=== PATIENT | female | born 2000 | race Caucasian/White ===

== ENCOUNTER 2021-04-21 15:30 | Emergency (ER) | payer OTHER ==
[2021-04-21] MEDS ORDERED: predniSONE 20 MG Tab PO ONE (15:56)
--- NOTE | 2021-04-21 16:04 | EDM.PDOC ---
ED HPI GENERAL MEDICAL PROBLEM - General Chief Complaint: Upper Extremity Injury/Pain Stated Complaint: LEFT WRIST PAIN Time Seen by Provider: 04/21/21 15:46 Source of Information: Reports: Patient, RN Notes Reviewed History Limitations: Reports: No Limitations - History of Present Illness INITIAL COMMENTS - FREE TEXT/NARRATIVE: Patient is a 20-year-old female who presents to the ER for the evaluation of her left wrist pain. States that this has been present for the past few days, she is having some swelling associated with this and notes that it is painful to move her wrist in any direction much at all. She states that she is not had any fevers or chills, cough or shortness of breath, or any other worsening sick symptoms. She is denying any numbness or tingling into her fingers. She is denying any pain that shoots up her arm. She did use 2 tablets of hydrocodone for pain management states that this seems to have gotten somewhat better with that. She is allergic to ibuprofen so has not taken anything like that. Patient notes that she does game on her [employer], so is doing a lot of frequent repetitive movements with her wrist for that. Left Wrist Pain Score (Numeric/FACES): 7 - Related Data Allergies Allergy/AdvReac Type Severity Reaction Status Date / Time ibuprofen [From Motrin] Allergy Severe Swelling Verified 04/21/21 15:45 Penicillins AdvReac Severe Stomach Verified 04/21/21 15:45 Upset Home Meds: Home Meds predniSONE 20 mg PO ASDIRECTED #15 tab 04/21/21 [Rx] Past Medical History - Past Health History Medical/Surgical History: Denies Medical/Surgical History Social & Family History - Tobacco Use Tobacco Use Status *Q: Current Some Day Tobacco User Years of Tobacco use: 1 Packs/Tins Daily: 0.1 - Caffeine Use Caffeine Use: Reports: Soda, Tea - Recreational Drug Use Recreational Drug Use: No Review of Systems - Review of Systems Review Of Systems: Comprehensive ROS is negative, except as noted in HPI. ED EXAM, GENERAL - Physical Exam Exam: See Below Exam Limited By: No Limitations General Appearance: Alert, WD/WN, No Apparent Distress Respiratory/Chest: No Respiratory Distress, Lungs Clear, Normal Breath Sounds, No Accessory Muscle Use, Chest Non-Tender Cardiovascular: Normal Peripheral Pulses, Regular Rate, Rhythm, No Edema Peripheral Pulses: 2+: Dorsalis Pedis (L), Dorsalis Pedis (R) Extremities: Normal Capillary Refill, Joint Swelling (slight swelling at left wrist), Limited Range of Motion (of left wrist d/t pain). No: Increased Warmth, Redness Neurological: Alert, Oriented, Normal Cognition, No Motor/Sensory Deficits Psychiatric: Normal Affect, Normal Mood Skin Exam: Warm, Dry, Intact, Normal Color, No Rash Course - Vital Signs Last Recorded V/S: Last Vital Signs Temp 98.9 F 04/21/21 15:42 Pulse 88 04/21/21 15:42 Resp 16 04/21/21 15:42 BP 120/68 04/21/21 15:42 Pulse Ox 97 04/21/21 15:42 - Orders/Labs/Meds Orders: Active Orders 24 hr Category Date Time Status predniSONE Med 04/21/21 15:56 Once 40 mg PO ONETIME ONE DME for Discharge [COMM] Routine Oth 04/21/21 15:56 Ordered Medication Orders Prednisone (Prednisone 20 Mg Tab) 40 mg PO ONETIME ONE Stop: 04/21/21 15:57 Meds: Medications Generic Name Dose Route Start Last Admin Trade Name Michael PRN Reason Stop Dose Admin Prednisone 40 mg 04/21/21 15:56 Prednisone 20 Mg Tab PO 04/21/21 15:57 ONETIME ONE - Re-Assessments/Exams Free Text/Narrative Re-Assessment/Exam: 04/21/21 15:59 Patient presents to the ER for her left wrist pain, I do suspect a possible tendinitis in her left wrist, we will go ahead and give her a wrist splint from the DME closet for immobilization of the joint and to prevent further injury. 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 Departure - Departure Time of Disposition: 16:00 Disposition: Home, Self-Care 01 Condition: Good Clinical Impression: Tendinitis of left wrist - Discharge Information *PRESCRIPTION DRUG MONITORING PROGRAM REVIEWED*: No *COPY OF PRESCRIPTION DRUG MONITORING REPORT IN PATIENT BALJIT: No Instructions: Tendinitis, [id number] Referrals: PCP,None [Primary Care Provider] - Additional Instructions: You have been evaluated in the ED for your left wrist pain. Is most likely tendinitis, or inflammation of the tendons in your wrist. Management of this will be steroids as you are allergic to ibuprofen. Dosing will be 1 tablet 2 times a day for the next 5 days, then 1 tablet once a day for the last 5 days. Your first dose of steroids were given in the ER at today's visit. You have been provided with a brace for your left wrist, to prevent further injury and/or stabilize the injury you received today. Please use ice as tolerated to the affected area. Please try to elevate the affected area to relieve swelling. If you do not have a primary care provider already, I recommend that you follow- up with a provider in our clinic, any family practice provider would be able to provide you with the services. Our clinic telephone number [phone], please call in the morning to obtain an appointment with the provider, for follow-up of your symptoms that prompted your ER visit today. Please return to ED if your symptoms should change or worsen. Sepsis Event Note (ED) - Evaluation Sepsis Screening Result: No Definite Risk - Focused Exam Vital Signs: Vital Signs Temp Pulse Resp BP Pulse Ox 04/21/21 15:42 98.9 F 88 16 120/68 97 - My Orders Last 24 Hours: My Active Orders 04/21/21 15:56 predniSONE 40 mg PO ONETIME ONE DME for Discharge [COMM] Routine - Assessment/Plan Last 24 Hours: My Active Orders 04/21/21 15:56 predniSONE 40 mg PO ONETIME ONE DME for Discharge [COMM] Routine
== END 2021-04-21 16:26 | disposition home or self-care (01) ==
LOC: JD.ED 15:30
DX: M77.8 Other enthesopathies, not elsewhere classified (principal); Z88.0 Allergy status to penicillin; Z88.8 Allergy status to other drugs, medicaments and biological substances; Z72.0 Tobacco use
CPT/HCPCS: 99283; J7512

== ENCOUNTER 2024-04-17 11:08 | Emergency (ER) | payer MEDICAID, OTHER ==
[2024-04-17] MEDS: cefTRIAXone 2 GM in Sodium Chloride 0.9% 100 ML IV ONE (11:48)
[2024-04-17] MEDS: Sodium Chloride 0.9% 10 ML Syringe FLUSH PRN (11:49)
== END 2024-04-17 12:30 | disposition home or self-care (01) ==
LOC: JD.ED 11:08
DX: L03.211 Cellulitis of face (principal); K04.7 Periapical abscess without sinus; Z88.0 Allergy status to penicillin; Z88.6 Allergy status to analgesic agent
CPT/HCPCS: 96365; 99283; J0696; J3490

== ENCOUNTER 2024-10-28 13:34 | Emergency (ER) | payer MEDICAID | END 2024-10-28 18:20 | disposition home or self-care (01) | LOC: JD.ED 13:34 | DX: M79.662 Pain in left lower leg (principal); Z88.0 Allergy status to penicillin; Z88.8 Allergy status to other drugs, medicaments and biological substances | CPT/HCPCS: 93971-26-LT; 93971-LT; 99283 ==